=== PATIENT | female | born 1985 | race Caucasian/White ===

== ENCOUNTER 2024-04-12 17:16 | Emergency (ER) | payer SELFPAY ==
[2024-04-12] MEDS ORDERED: TORAdol 30 mg Injection ONE (18:14)
[2024-04-12] MEDS: TORAdol 30 mg Injection IM ONE (18:15)
[2024-04-12 18:16] VITALS: TEMP 97.6
--- NOTE | 2024-04-12 18:18 | ERPHSYRPT ---
- History of Present Illness Time Seen by Provider: 04/12/24 18:13 Source: patient Physician History: 38-year-old female presents to emergency department for evaluation of blood pressure. Patient had a headache at home. She took her blood pressure and it was 179/141. Patient was otherwise asymptomatic. Upon arrival to our ED. Patient's blood pressure was 117/70. Patient had a slight headache. She has history of migraine headache. Patient states Toradol typically manages her headache patient denies chest pain shortness of breath. No nausea vomiting or diaphoresis. Patient otherwise feels well. She voices no other complaints or concerns at this time. Patient denies the possibility of Portions of this note were created with voice recognition technology. There may be grammatical, spelling, punctuation or sound alike errors Timing/Duration: today Severity: moderate Modifying Factors: Improves With: nothing Associated Symptoms: denies symptoms Allergies/Adverse Reactions: amoxicillin Allergy (Verified 04/12/24 18:01) codeine Allergy (Verified 04/12/24 18:01) meperidine [From Demerol] Allergy (Verified 04/12/24 18:01) tetracycline Allergy (Verified 04/12/24 18:01) Home Medications: Buspirone HCl 5 mg [Buspar 5 mg] 5 mg PO TID 04/12/24 [History] Duloxetine HCl 30 mg [Cymbalta 30 MG Capsule] 30 mg PO DAILY 04/12/24 [History] Montelukast Sodium 10 mg [Singulair 10 MG] 10 mg PO DAILY 04/12/24 [History] Propranolol HCl [Propranolol HCl ER] 60 mg PO DAILY 04/12/24 [History] Rimegepant Sulfate [Nurtec Odt] 75 mg PO DAILY 04/12/24 [History] Sumatriptan Succinate [Imitrex] 100 mg PO DAILY PRN 04/12/24 [History] Tizanidine HCl 4 mg [Zanaflex 4 MG] 4 mg PO BID PRN 04/12/24 [History] - Review of Systems Constitutional: No Symptoms, No Fever, No Chills Eyes: No Symptoms Ears, Nose, & Throat: No Symptoms Respiratory: No Symptoms, No Cough, No Dyspnea Cardiac: No Symptoms, No Chest Pain, No Edema, No Syncope Abdominal/Gastrointestinal: No Symptoms, No Abdominal Pain, No Nausea, No Vomiting, No Diarrhea Genitourinary Symptoms: No Symptoms, No Dysuria Musculoskeletal: No Symptoms, No Back Pain, No Neck Pain Skin: No Symptoms, No Rash Neurological: No Symptoms, No Dizziness, No Focal Weakness, No Sensory Changes Psychological: No Symptoms Endocrine: No Symptoms Hematologic/Lymphatic: No Symptoms Immunological/Allergic: No Symptoms All Other Systems: Reviewed and Negative - Physical Exam General Appearance: no apparent distress, alert Eye Exam: PERRL/EOMI, eyes nml inspection Ears, Nose, Throat Exam: normal ENT inspection, TMs normal, pharynx normal, moist mucous membranes Neck Exam: normal inspection, non-tender, supple, full range of motion Respiratory Exam: normal breath sounds, lungs clear, No respiratory distress Cardiovascular Exam: regular rate/rhythm, normal heart sounds, normal peripheral pulses Gastrointestinal/Abdomen Exam: soft, normal bowel sounds, No tenderness, No mass Back Exam: normal inspection, normal range of motion, No CVA tenderness, No vertebral tenderness Extremity Exam: normal inspection, normal range of motion, pelvis stable Neurologic Exam: alert, oriented x 3, cooperative, normal mood/affect, nml cerebellar function, nml station & gait, sensation nml, No motor deficits Skin Exam: normal color, warm, dry, No rash Lymphatic Exam: No adenopathy SpO2 Interpretation: normal SpO2: 98 O2 Delivery: Room Air - Course Nursing assessment & vital signs reviewed: Yes - Progress Progress: improved Progress Note: 38-year-old female presents to our ED for elevated blood pressure. Patient's blood pressure in our ED is within normal limits. Patient also complained of a headache. Patient has history of migraines. Headache is same as her usual migraine which responds to Toradol. IM Toradol administered. Patient reassessed. She feels well. Vital stable. No indication for further workup. No associated chest pain or shortness of breath. Will discharge home. Patient agrees to follow-up with her primary care doctor within 48 hours for evaluation. Portions of this note were created with voice recognition technology. There may be grammatical, spelling, punctuation or sound alike errors Complexity problem addressed is moderate acute complicated. No critical care time. Complexity of data reviewed and analyzed is none. No specialized testing ordered. Diagnosis made based on history and physical examination. Risk of complication and or risk of morbidity/mortality patient management is moderate. Patient received a IM dose of Toradol. A prescription for the same forwarded to patient's pharmacy. Vital stable. Time spent to discharge patient approximately 15 minutes. Plan of care established for shared decision making. No social determinants of health present impede follow-up. Portions of this note were created with voice recognition technology. There may be grammatical, spelling, punctuation or sound alike errors 04/12/24 18:15 Counseled pt/family regarding: lab results, diagnosis, need for follow-up, rad results - Departure Departure Disposition: Home Clinical Impression: Migraine, Elevated blood pressure reading Condition: Stable Critical Care Time: No Referrals: Provider,Unknown [Primary Care Provider] - Follow up/PCP as directed Additional Instructions: Discharge/Care Plan TORRESSUSAN SHARPE was seen on 04/12/24 in the Emergency Room. The patient was counseled regarding Diagnosis,Lab results, Imaging studies, need for follow up and when to return to the Emergency Room. Prescriptions given: Discharge Note I have spoken with the patient and/or caregivers. I have explained the patient's condition, diagnosis and treatment plan based on the information available to me at this time. I have answered the patient's and/or caregiver's questions and addressed any concerns. The patient and/or caregivers have as good understanding of the patient's diagnosis, condition and treatment plan as can be expected at this point. The vital signs have been stable. The patient's condition is stable and appropriate for discharge from the emergency department. The patient will pursue further outpatient evaluation with the primary care physician or other designated or consulting physician as outlined in the discharge instructions. The patient and/or caregivers are agreeable to this plan of care and follow-up instructions have been explained in detail. The patient and/or caregivers have received these instruction. The patient/and or caregivers are aware that any significant change in condition or worsening of symptoms should prompt an immediate return to this or the closest emergency department or call 911. Prescriptions: Ketorolac Trometh 10 mg Tab [TORAdol 10 MG TABLET] 10 mg PO TID 5 Days #15 tablet
[2024-04-12 18:25] VITALS: BP 104/73; PULSE 68; RESP 16; O2SAT 96
== END 2024-04-12 18:25 | disposition home or self-care (01) ==
LOC: ED 17:16
DX: G43.909 Migraine, unspecified, not intractable, without status migrainosus (principal); R03.0 Elevated blood-pressure reading, without diagnosis of hypertension; Z79.899 Other long term (current) drug therapy
CPT/HCPCS: 93005; 96372; 99283; J1885

== ENCOUNTER 2024-06-22 15:49 | Emergency (ER) | payer BC, MEDICAID ==
[2024-06-22 16:07] VITALS: BP 132/87; PULSE 75; TEMP 97.9; O2SAT 100
--- NOTE | 2024-06-22 16:09 | ERPHSYRPT ---
- History of Present Illness Time Seen by Provider: 06/22/24 15:55 Source: patient Exam Limitations: no limitations Physician History: For the past 7 hours pt has had a constant 8/10 in severity global headache with nausea; denies vomiting, abdominal pain, chest pain, fever, shortness of air. Allergies/Adverse Reactions: amoxicillin Allergy (Verified 04/12/24 18:01) codeine Allergy (Verified 06/22/24 16:07) meperidine [From Demerol] Allergy (Verified 04/12/24 18:01) tetracycline Allergy (Verified 04/12/24 18:01) Home Medications: Buspirone HCl 5 mg [Buspar 5 mg] 5 mg PO TID 04/12/24 [History] Duloxetine HCl 30 mg [Cymbalta 30 MG Capsule] 30 mg PO DAILY 04/12/24 [History] Montelukast Sodium 10 mg [Singulair 10 MG] 10 mg PO DAILY 04/12/24 [History] Propranolol HCl [Propranolol HCl ER] 60 mg PO DAILY 04/12/24 [History] Tizanidine HCl 4 mg [Zanaflex 4 MG] 4 mg PO BID PRN 04/12/24 [History] Fremanezumab-Vfrm [Ajovy Autoinjector] 225 mg SQ UD 06/22/24 [History] Hx Tetanus, Diphtheria Vaccination/Date Given: Yes Hx Influenza Vaccination/Date Given: No Hx Pneumococcal Vaccination/Date Given: No Travel Risk - Emerging Infectious Disease Are you exhibiting symptoms associated with any current EIDs: No - Review of Systems Constitutional: No Fever Respiratory: No Dyspnea Cardiac: No Chest Pain Abdominal/Gastrointestinal: Nausea, No Abdominal Pain, No Vomiting Neurological: Headache - Past Medical History Pertinent Past Medical History: Yes Neurological History: Migraines Respiratory History: Asthma - Past Surgical History Past Surgical History: Yes Gastrointestinal: Appendectomy Female Surgical History: Hysterectomy - Social History Smoking Status: Never smoker Exposure to second hand smoke: No Drug Use: none - Social Determinants of Health Will the patient participate in the screening: Yes Do you worry about a steady place to live?: No In the past 12 months,have you had to go without utilities?: No Transportation Issues: No Has anyone in your support network made you feel unsafe?: No Have you or anyone in your house had to go without enough: No - Nursing Vital Signs Nursing Vital Signs: Initial Vital Signs Temperature 97.9 F 06/22/24 15:53 Pulse Rate 75 06/22/24 15:53 Blood Pressure 132/87 06/22/24 15:53 O2 Sat by Pulse Oximetry 100 06/22/24 15:53 Pain Scale Pain Intensity 8 - Physical Exam General Appearance: alert Eye Exam: PERRL/EOMI Ears, Nose, Throat Exam: TMs normal, pharynx normal, moist mucous membranes Neck Exam: normal inspection Respiratory Exam: lungs clear Cardiovascular Exam: normal heart sounds Gastrointestinal/Abdominal Exam: normal bowel sounds Extremity Exam: normal range of motion Mental Status Exam: alert, cooperative clean up helper banquet Exam: normal hearing, normal speech, PERRL Motor/Sensory Exam: no motor deficit, no sensory deficit Skin Exam: warm, dry - CT Exams Head CT Interpretation: Discussed w/radiologist (Left posterior fossa arachnoid cyst. Remaining CT head without contrast exam is negative.) Ordered Tests: Active Orders 24 hr Category Date Time Status HEAD WITHOUT CONTRAST [CT] Stat Exams 06/22/24 16:05 Completed Medication Summary Discontinued Medications Generic Name Dose Route Start Last Admin Trade Name Freq PRN Reason Stop Dose Admin Diphenhydramine HCl 50 mg 06/22/24 16:57 Diphenhydramine Hcl 50 Mg/Ml Vial IM 06/22/24 16:58 STAT ONE Ketorolac Tromethamine 60 mg 06/22/24 16:56 Ketorolac Tromethamine 30 Mg/Ml Inj IM 06/22/24 16:57 STAT ONE - Progress Progress: improved Counseled pt/family regarding: diagnosis, need for follow-up, rad results Medical Desision Making - Diagnostic Testing Diagnostic test were ordered, analyzed, and reviewed by me: Yes Radiological Interpretation: Discussed w/ radiologist - Departure Departure Disposition: Home Clinical Impression: Headache, Migraine Condition: Stable Critical Care Time: No Referrals: DOCTOR,NO FAMILY [Primary Care Provider] - Follow up/PCP as directed Instructions: Headache, Adult (DC) Additional Instructions: Follow up with private doctor tomorrow. Forms: Work/School Release Form
--- NOTE | 2024-06-22 16:40 | XRAY ---
Indication: Migraine. Multiple contiguous axial images obtained through the head without contrast. Comparison: None Ventriculosulcal pattern appears symmetric. Left posterior fossa demonstrates 1.9 x 3.2 x 4.2 cm arachnoid cyst just left of midline. No acute intracranial hemorrhage, hydrocephalus, or mass effect. Fourth ventricle is midline. Avalos-white matter differentiation preserved. Bony calvarium intact. Visualized paranasal sinuses and mastoid air cells are clear. Impression: Left posterior fossa arachnoid cyst. Remaining CT head without contrast exam is negative.
[2024-06-22] MEDS ORDERED: TORAdol 30 mg Injection ONE (17:00)
[2024-06-22] MEDS ORDERED: BENADRYL 50 MG/ML ONE (17:01)
[2024-06-22] MEDS: BENADRYL 50 MG/ML IM ONE (17:02)
[2024-06-22] MEDS: TORAdol 30 mg Injection IM ONE (17:03)
== END 2024-06-22 17:17 | disposition home or self-care (01) ==
LOC: ED 15:49
DX: G43.909 Migraine, unspecified, not intractable, without status migrainosus (principal); R11.0 Nausea; Z79.899 Other long term (current) drug therapy
CPT/HCPCS: 70450; 96372; 99283; J1200; J1885